=== PATIENT | female | born 1995 | race Hispanic/Latino ===

== ENCOUNTER 2017-06-04 22:38 | Emergency (ER) | payer MEDICAID | END 2017-06-04 23:21 | disposition home or self-care (01) | LOC: EDH 22:38 | DX: K29.70 Gastritis, unspecified, without bleeding (principal) ==

== ENCOUNTER 2018-03-28 23:23 | Emergency (ER) | payer MEDICAID, OTHER ==
[2018-03-28 23:55] LABS: BASOPHILS % (AUTO) 0.9 % (0.0-5.0); EOSINOPHILS % (AUTO) 4.4 % (0.0-8.0); HEMATOCRIT 36.4 % (36-48); LYMPHOCYTES % (AUTO) 25.6 % (21.0-51.0); MEAN CORPUSCULAR HEMOGLOBIN 28.5 pg (27.0-33.0); NEUTROPHILS % (AUTO) 61.1 % (40.0-77.0); NUCLEATED RED BLOOD CELLS 0.1 % (0.0-0.19); PLATELET COUNT (AUTO) 243 K/uL (130-400); RED BLOOD CELL COUNT(AUTO) 4.33 MIL/uL (4.00-5.50); RED CELL DISTRIBUTION WIDTH 13.3 % (11.0-15.5); WHITE BLOOD COUNT (AUTO) 11.6 K/uL (4.8-10.8)
[2018-03-28] MEDS ORDERED: IPRATROPIUM/ALBUTEROL SULFATE 3 ML SOLUTION IH ONE (23:56)
[2018-03-28 23:59] LABS: CREATININE 0.7 mg/dL (0.5-1.5); POTASSIUM 3.3 mmol/L (3.5-5.1)
[2018-03-29 00:06] LABS: ALBUMIN 3.6 g/dL (3.5-5.0); BILIRUBIN,TOTAL 0.3 mg/dL (0.2-1.0); TOTAL PROTEIN, SERUM 7.8 g/dL (6.0-8.3)
[2018-03-29] MEDS ORDERED: PREDNISONE 20 MG TABLET ONE (00:47)
== END 2018-03-29 00:55 | disposition home or self-care (01) ==
LOC: EDH 23:23
DX: J45.909 Unspecified asthma, uncomplicated (principal); F41.9 Anxiety disorder, unspecified; Z72.0 Tobacco use
CPT/HCPCS: 36415; 71046; 80053; 81025; 85025; 94640

== ENCOUNTER 2018-06-07 08:55 | Emergency (ER) | payer SELFPAY ==
[2018-06-07 10:31] LABS: RAPID GROUP A STREP NEGATIVE (NEGATIVE)
== END 2018-06-07 11:39 | disposition home or self-care (01) ==
LOC: EDH 08:55
DX: J06.9 Acute upper respiratory infection, unspecified (principal); F41.9 Anxiety disorder, unspecified; Z90.49 Acquired absence of other specified parts of digestive tract; Z98.890 Other specified postprocedural states
CPT/HCPCS: 81025; 87804; 87880

== ENCOUNTER 2018-06-11 06:03 | Emergency (ER) | payer SELFPAY | END 2018-06-11 07:39 | disposition home or self-care (01) | LOC: EDH 06:03 | DX: J01.90 Acute sinusitis, unspecified (principal); F41.9 Anxiety disorder, unspecified; Z98.890 Other specified postprocedural states | CPT/HCPCS: 87804 ==

== ENCOUNTER 2018-07-30 00:16 | Emergency (ER) | payer OTHER, SELFPAY | END 2018-07-30 01:32 | disposition home or self-care (01) | LOC: EDH 00:16 | DX: N89.8 Other specified noninflammatory disorders of vagina (principal); J02.9 Acute pharyngitis, unspecified; F41.9 Anxiety disorder, unspecified; Z79.899 Other long term (current) drug therapy ==

== ENCOUNTER 2019-03-05 10:14 | Emergency (ER) | payer SELFPAY | END 2019-03-05 11:55 | disposition home or self-care (01) | LOC: EDH 10:14 | DX: J01.90 Acute sinusitis, unspecified (principal); F41.9 Anxiety disorder, unspecified; Z98.890 Other specified postprocedural states | CPT/HCPCS: 81025 ==

== ENCOUNTER 2019-04-25 17:42 | Emergency (ER) | payer SELFPAY ==
[2019-04-25] MEDS ORDERED: IPRATROPIUM/ALBUTEROL SULFATE 3 ML SOLUTION IH ONE (18:19)
[2019-04-25 18:49] LABS: RAPID GROUP A STREP NEGATIVE (NEGATIVE)
== END 2019-04-25 20:00 | disposition home or self-care (01) ==
LOC: EDH 17:42
DX: B34.9 Viral infection, unspecified (principal); J20.9 Acute bronchitis, unspecified; H65.93 Unspecified nonsuppurative otitis media, bilateral; F41.9 Anxiety disorder, unspecified; Z90.49 Acquired absence of other specified parts of digestive tract; Z98.890 Other specified postprocedural states
CPT/HCPCS: 71046; 87804; 87880; 94640

== ENCOUNTER 2019-05-05 07:26 | Emergency (ER) | payer SELFPAY ==
[2019-05-05] MEDS ORDERED: ONDANSETRON ODT 4 MG TAB ONE (08:45)
== END 2019-05-05 09:44 | disposition home or self-care (01) ==
LOC: EDH 07:26
DX: J10.1 Influenza due to other identified influenza virus with other respiratory manifestations (principal); F41.9 Anxiety disorder, unspecified; Z79.899 Other long term (current) drug therapy; Z98.890 Other specified postprocedural states
CPT/HCPCS: 87804

== ENCOUNTER 2019-06-21 11:19 | Emergency (ER) | payer OTHER | END 2019-06-21 13:44 | disposition home or self-care (01) | LOC: EDH 11:19 | DX: J21.9 Acute bronchiolitis, unspecified (principal); F41.9 Anxiety disorder, unspecified; Z88.1 Allergy status to other antibiotic agents; Z98.890 Other specified postprocedural states | CPT/HCPCS: 87804 ==

== ENCOUNTER 2021-06-25 13:15 | Emergency (ER) | payer OTHER, SELFPAY ==
[~2021-06-25] VITALS: Ht 162.6 cm; Wt 115.7 kg
[2021-06-25] MEDS ORDERED: 0.9%NACL 1000ML 1,000 ML IV ONE (13:36)
[2021-06-25 13:50] LABS: BASOPHILS % (AUTO) 0.3 % (0.0-5.0); EOSINOPHILS % (AUTO) 0.9 % (0.0-8.0); HEMATOCRIT 40.2 % (36-48); LYMPHOCYTES % (AUTO) 20.2 % (21.0-51.0); MEAN CORPUSCULAR HEMOGLOBIN 28.7 pg (27.0-33.0); MEAN CORPUSCULAR HGB CONC 32.8 g/dL (32.0-36.0); MEAN CORPUSCULAR VOLUME 87.4 fL (79-99); MONOCYTES % (AUTO) 6.2 % (3.0-13.0); NEUTROPHILS % (AUTO) 72.1 % (40.0-77.0); PLATELET COUNT (AUTO) 257 K/uL (130-400); RED CELL DISTRIBUTION WIDTH 13.2 % (11.0-15.5); WHITE BLOOD COUNT (AUTO) 10.4 K/uL (4.8-10.8)
[2021-06-25 14:02] LABS: CREATININE 0.6 mg/dL (0.5-1.5); POTASSIUM 3.4 mmol/L (3.5-5.1)
[2021-06-25 14:29] LABS: BILIRUBIN,TOTAL 0.5 mg/dL (0.2-1.0); TOTAL PROTEIN, SERUM 8.3 g/dL (6.0-8.3)
[2021-06-25 15:26] LABS: APPEARANCE,URINE Clear (CLEAR); BILIRUBIN,URINE Negative (NEGATIVE); COLOR,URINE Yellow (YELLOW); GLUCOSE, URINE (UA) Negative (NEGATIVE); KETONES,URINE 15 mg/dL (NEGATIVE); LEUKOCYTE ESTERASE ,URINE Negative (NEGATIVE); NITRATE,URINE Negative (NEGATIVE); OCCULT BLOOD,URINE Small (NEGATIVE); PROTEIN,URINE Negative (NEGATIVE); UROBILINOGEN,URINE 0.2 mg/dL (0.2-1.0)
[2021-06-25 15:27] LABS: HCG,QUAL RESULT POSITIVE (NEGATIVE)
[2021-06-25 15:53] LABS: WBC,URINE 0-1 /HPF (0-1)
[2021-06-25 15:54] LABS: BACTERIA,URINE Few /HPF (None Seen); MUCUS,URINE Few LPF (None Seen); SQUAMOUS EPITHELIAL CELL,UR Few /HPF (0-2)
[2021-06-25 16:15] VITALS: BP 110/58
== END 2021-06-25 16:15 | disposition home or self-care (01) ==
LOC: EDH 13:15
DX: O02.0 Blighted ovum and nonhydatidiform mole (principal); O08.1 Delayed or excessive hemorrhage following ectopic and molar pregnancy; Z3A.09 9 weeks gestation of pregnancy
CPT/HCPCS: 36415; 76801; 80053; 81001; 81025; 84702; 85025; 86900; 86901; 99284; J7030

== ENCOUNTER 2024-03-24 22:51 | Emergency (ER) | payer SELFPAY ==
[~2024-03-24] VITALS: Ht 162.6 cm; Wt 113.1 kg
[2024-03-24] MEDS: SIMETHICONE 80 MG TAB.CHEW PO SCH (23:23)
[2024-03-24] MEDS: LACTULOSE 20 GM/30 ML UDCUP PO ONE (23:23)
--- NOTE | 2024-03-24 23:27 | ERN ---
ED Note History of Present Illness Stated Complaint: ABDOMINAL PAIN, BLOOD IN URINE Chief Complaint: Abdominal Pain Time Seen by MD: 22:59 Dictation: Patient is a 29-year-old female with a past medical history who presented to the ER complaining of lower abdominal pain, stated that she has constipation, said that the pain feel like she has a gas feeling bloating in the lower abdominal ar ea. Also mentioned that she had a blood in the urine. She denies fever, chills, chest pain. Patient's last bowel movement was today but states that she was able only to pass a tiny piece of stool. Allergies: Coded Allergies: No Known Drug Allergies (Unverified Allergy, Unknown, 12/10/18) Past Medical History Past Medical History: No Pertinent History Surgical History: Tonsillectomy, : 2 Para: 1 Aborts: 0 Review of System Dictation NEGATIVE EXCEPT PER HPI Constitutional: Negative for fever,chills, and weight loss Eyes: Negative for injury, pain,redness, and discharge ENT: Negative for injury,pain or swelling Cardiovascular: denies chest pain, palpitations, and edema Respiratory: Negative for shortness of breath, cough, and wheezing, Abdomen/GI: Lower abdominal pain, suprapubic pain Back: Negative for injury and pain : Negative for injury, bleeding and discharge MS/Extremity: Negative for injury and deformity Skin: Negative for rash, and discoloration Neuro: Negative for headache, weakness, numbness, tingling, and seizure Psych: Negative for suicide ideation, homicidal ideation, and hallucinations Initial Vital Sign VS Vital Signs Date Time Temp Pulse Resp B/P (MAP) Pulse Ox O2 Delivery O2 Flow Rate FiO2 03/24/24 22:52 97.3 92 16 134/86 100 Room Air 0 03/24/24 23:32 21 Physical Exam Dictation General: awake, alert, NAD Head/Face: Normocephalic, atraumatic Eyes: PERRL, EOMI, vision at baseline ENT: oral cavity clear, TMs clear, no signs of infection Neck: Trachea midline, supple, no nuchal rigidity Cardiovascular: RRR, normal S1/S2, No MRGs, no JVD Respiratory: CTAB, no respiratory distress, No rales or wheezes Abdomen: Soft , mild tenderness in the lower abdominal area Skin: Warm, dry, normal turgor, no rash MS/Extremity: Pulses equal, no cyanosis, neurovascular intact, FROM Neuro: COAx4, GCS 15, strength 5/5, CN 2-12 intact, normal cerebellar exam, normal gait, Psych: Normal behavior, mood, and affect normal Results (Laboratory/Radiology) Laboratory/Radiology Laboratory Tests Test 03/25/24 00:05 Urine Color LIGHT-YELLOW (YELLOW) Urine Appearance CLOUDY (CLEAR) H Urine pH 6.5 (5.0-8.0) Urine Specific Johnson 1.012 (1.001-1.031) Urine Protein NEGATIVE mg/dL (NEGATIVE) Urine Glucose (UA) NEGATIVE mg/dL (NEGATIVE) Urine Ketones NEGATIVE mg/dL (NEGATIVE) Urine Occult Blood LARGE (NEGATIVE) H Urine Nitrate NEGATIVE (NEGATIVE) Urine Bilirubin NEGATIVE mg/dL (NEGATIVE) Urine Urobilinogen 0.2 mg/dL (0.2-1.0) Urine Leukocyte Esterase 250 Keshia/uL (NEGATIVE) H Urine RBC 2-5 /HPF (0-1) H Urine WBC 6-10 /HPF (0-1) H Urine Squamous Epithelial Cells MOD /HPF (0-2) Urine Bacteria None /HPF (None Seen) Urine HCG, Qualitative NEGATIVE (NEGATIVE) ED Course ED Course Orders Procedure Category Date Status Time Urinalysis Profile LAB 03/24/24 Complete 23:13 ,Urine Test LAB 03/24/24 Complete 23:13 Lactulose 20 Gm/30 Ml PHA 03/24/24 Complete Udcup (Constulose 23:30 Simethicone (Mylicon) PHA 03/24/24 In Process 23:30 Culture Urine CHANTEL 03/25/24 In Process 00:16 Ct Abdomen/Pelvis W/O CT 03/25/24 Resulted Contrast 00:20 Ceftriaxone 2gm Vial PHA 03/25/24 Complete (Rocephin 2gm Inj) 00:30 Current Medications Medications (Trade) Dose Ordered Sig/Ania Route PRN Reason Start Time Stop Time Status Last Admin Dose Admin Ceftriaxone Sodium (Rocephin 2gm Inj) 2 gm ONCE ONCE IVPB 03/25/24 00:30 03/25/24 00:31 DC 03/25/24 00:43 Lactulose (Constulose 20gm/ 30ml Udcup) 20 gm ONCE ONCE PO 03/24/24 23:30 03/24/24 23:31 DC 03/24/24 23:23 Simethicone (Mylicon) 160 mg ONCE PO 03/24/24 23:30 04/23/24 23:29 03/24/24 23:23 Vital Signs Date Time Temp Pulse Resp B/P (MAP) Pulse Ox O2 Delivery O2 Flow Rate FiO2 03/25/24 00:28 97.3 78 18 132/77 100 Room Air* 0 21 03/24/24 23:32 78 18 130/80 98 Room Air* 0 03/24/24 22:52 97.3 92 16 134/86 100 Room Air 0 Medical Decision Making MDM 29-year-old female with a past medical history of constipation, morbid obesity who presents complaining of suprapubic/lower abdominal pain associated with hematuria. Rationale: Constipation, urinary tract infection, nephrolithiasis. Ordered UA and test. Urine positive for leukocyte esterase and large amount of blood. Ceftriaxone IV ordered Due to large amount of blood CT scan was performed to rule out nephrolithiasis, CT imaging was negative for acute findings. Patient will be discharged home on oral antibiotic therapy, MiraLax, lactulose and simethicone. DX & DISP Disposition: Discharge Departure Impression: Primary Impression: UTI (urinary tract infection) Additional Impressions: Suprapubic pain, Constipation Condition: Stable Scripts Simethicone (Simethicone) 80 Mg Tab.chew 1 TAB PO TID for gas for 6 Days, #20 TAB 0 Refills Prov: ORION BROOKS MD 03/25/24 Cephalexin Monohydrate (Keflex) 250 Mg Cap 1 CAP PO QID for 7 Days, #28 CAP 0 Refills Prov: ORION BROOKS MD 03/25/24 Polyethylene Glycol 3350 (Miralax) 17 Gram/Dose Powder 17 GM PO DAILY for constipation, #255 GM 0 Refills dissolve in water Prov: ORION BROOKS MD 03/25/24 Lactulose (Lactulose) 10 Gram/15 Ml Solution 30 ML PO BID for constipation, #500 ML 0 Refills Prov: ORION BROOKS MD 03/25/24 Additional Instructions: RETURN TO ER FOR ANY ACUTE OR WORSENING SYMPTOMS. FOLLOW-UP IN 1-2 DAYS WITH PRIMARY PROVIDER FOR RECHECK OF TODAY'S SYMPTOMS. Referrals: AMADO VERDUGO DO (PCP) Time of Disposition: 01:35 ORION BROOKS MD Mar 24, 2024 23:27
[2024-03-25 00:14] LABS: APPEARANCE,URINE CLOUDY (CLEAR); BILIRUBIN,URINE NEGATIVE (NEGATIVE); COLOR,URINE LIGHT-YELLOW (YELLOW); GLUCOSE, URINE (UA) NEGATIVE (NEGATIVE); KETONES,URINE NEGATIVE (NEGATIVE); LEUKOCYTE ESTERASE ,URINE 250 Leu/uL (NEGATIVE); NITRATE,URINE NEGATIVE (NEGATIVE); OCCULT BLOOD,URINE LARGE (NEGATIVE); PH,URINE 6.5 (5.0-8.0); PROTEIN,URINE NEGATIVE (NEGATIVE); UROBILINOGEN,URINE 0.2 mg/dL (0.2-1.0)
[2024-03-25 00:16] LABS: ADD UA MICROSCOPIC YES
[2024-03-25 00:22] LABS: MUCUS,URINE RARE LPF (None Seen); SQUAMOUS EPITHELIAL CELL,UR MOD /HPF (0-2)
[2024-03-25 00:26] LABS: HCG,QUALITATIVE URINE NEGATIVE (NEGATIVE)
[2024-03-25] MEDS: CEFTRIAXONE 2GM VIAL IVPB ONE (00:43)
--- NOTE | 2024-03-25 01:11 | HMCIMG ---
CT ABDOMEN/PELVIS W/O CONTRAST HISTORY: Abdominal pain COMPARISON: 08/07/2016 TECHNIQUE: Multiple sequential axial images of the abdomen and pelvis were obtained from the dome of the diaphragm through symphysis pubis. Patient was not given contrast through intravenous route. Oral contrast was not given. FINDINGS: No pleural effusion is seen bilaterally. There is no evidence of parenchymal disease or pulmonary nodule of the visualized lower lungs. Degenerative changes of the thoracolumbar spine are present. The heart is not enlarged. Liver is enlarged with fatty changes measuring 18 cm. Gallbladder is contracted. The liver, spleen, adrenal glands and pancreas are unremarkable. There is no evidence of hydronephrosis bilaterally. No evidence of renal stone is seen. Fecal material is seen in the colon. There are normal size retroperitoneal and mesenteric lymph nodes. No ascites is seen. There are bilateral ovarian follicles. Appendix is not well seen limiting evaluation Pelvic sidewalls are symmetric bilaterally. Bladder is poorly distended. IMPRESSION: 1. No acute findings. CT was performed with one or more following dose reduction techniques: automated exposure control, adjustment of the mA and kv according to patient's size, or use of a iterative reconstruction technique.
[2024-03-25] MEDS ORDERED: LACT10SO85 PO (01:34)
[2024-03-25] MEDS ORDERED: CEPH250 PO (01:34)
[2024-03-25] MEDS ORDERED: POLY119P2 PO (01:34)
[2024-03-25] MEDS ORDERED: SIME80TA12 PO (01:35)
[2024-03-25 01:52] VITALS: BP 127/72; PULSE 76; RESP 15; TEMP 97.4; O2SAT 100
== END 2024-03-25 01:54 | disposition home or self-care (01) ==
LOC: EDH 22:51
DX: K59.00 Constipation, unspecified (principal); N39.0 Urinary tract infection, site not specified; Z90.89 Acquired absence of other organs
CPT/HCPCS: 99285; 87086; 81001; 81025; 74176; 96374; J0696